=== PATIENT | female | born 1985 | race Hispanic/Latino ===

== ENCOUNTER 2019-09-12 17:16 | Emergency (ER) | payer SELFPAY ==
--- OUTSIDE RECORDS SUMMARY | 2019-09-12 17:19 | XMS REPORT | Continuity of Care Document ---
:1985 Author Organization [facility] t Address [address] [place] [address] [address]. Tena [address] [place] [address] Care Team Providers Name Role Phone Unavailable Unavailable Unavailable Payers Payer Name Policy Type Policy Number Effective Date Expiration Date S ource Problems This patient has no known problems. Allergies, Adverse Reactions, Alerts Allergy Allergy Status Severity Reaction(s) Onset Inactive Treating Comm ents Source Name Type Date Date Clinician No Known DA Active U 2017-04 [facility] No Known DA Active U [facility] 3-25 [facility] Medications This patient has no known medications. Procedures This patient has no known procedures. Results Test Description Test Time Test Comments Results Result [facility] e Comments [facility] 2018-02-08 TRIMESTER 19:20:00 --------RUN DATE: 02/09/18 [facility] PAGE 1 RUN TIME: 9313 Specimen Inquiry RUN USER: INTERFACE --------PATIENT: NIURKA CHA LOC: GUNNAR U #: [id number] AGE/SX: 32/F ROOM: [facility] RE02/04/18REG DR: Loulou Kurtz MD : 81 BED: A DIS: 02/07/18 STATUS: DIS IN TLOC: -------- SPEC #: [id number] RECD: 02/04/18 STATUS: GISELLE REQ #: [id number] SHO: 02/04/18- [facility] DR: Loulou Kurtz MD ENTERED: 02/07/18 SP TYPE: PLACIII OTHR DR: Kylah Holland MD ORDERED: LEVEL V SURGICA CODES: [id number] - PLACENTA, NOS COPIES TO: Loulou Kurtz MD [address] [place] [address] [email or web address] Kylah Holland MD [address] [place] [address] [email or web address] PROCEDURES: LEVEL V SURGICA (Incomplete) TISSUES: PLACENTA, NOS - PLACENTA CLINICAL HISTORY 32 year old, 37.2 weeks, , oligohydramnios (wpd) FINAL DIAGNOSIS Placenta, delivery: - small placenta for stated gestational age - true knot of umbilical cord - perivillous fibrin deposition - chorionic cyst, focal Tissue code 1 CPT code(s): 51208 bgw/wpd 02/08/18 @ 1917 CONTINUED ON NEXT PAGE --------RUN DATE: 02/09/18 [facility] PAGE 2 RUN TIME: 1243 Specimen Inquiry RUN USER: INTERFACE --------SPEC #: [id number] PATIENT: NIURKA CHA #[id number] (Continued) GROSS DESCRIPTION The specimen was received in a container, labeled with the patient's name, unit number and designated "placenta". The following attributes are observed: Cord insertion: 5 cm from margin Cord length: 54 cm Number of vessels: 3 Cord color: Blue-loya Other cord findings: The cord contains a true cord knot measuring 4 x 3 x 3 cm (in E) surface findings: Steel blue, wrinkled, glistening and contains a loya, firm lesion measuring 1.5 cm and located 0.6 cm from the cord insertion site with an overlying 2.5 cm semi-translucent cyst containing light yellow, thin fluid (in B) Vasculature: Displays unremarkable blood vasculature Membranes rupture site: 0.0 cm to margin Membrane color: Loya Other membrane findings: Thickened and opaque The trimmed placental weight: 341 gm Disk measurement: 18 x 15 x 2.8 cm in greatest dimension Accessory lobes: None Maternal surface: Lobulated and intact Parenchyma: Red, beefy, and spongy Parenchyma lesions: None Cassettes: A through D, E - true cord knot /wpd 02/07/18 @ 5425 MICROSCOPIC DESCRIPTION In the area of the cord knot, the vessels appear mildly dilated; however, no inflammation is present. No definite evidence of vascular compromise is identified. There is focal perivillous fibrin deposition. The placenta is small for stated gestational age at 341 gm, which is less than the 10th percentile expected weight of 391 gm. w/wpd 02/08/18 @ 1917 Signed Loco Saleh 02/08/181919 -------- END OF REPORT
[2019-09-12] MEDS ORDERED: HYDROCODONE/APAP 7.5/325 MG TAB ONE (18:56)
--- NOTE | 2019-09-12 19:22 | EDPHYS ---
Physician Documentation [facility] Name: Cecile Miranda Age: 33 yrs Sex: Female : 1985 Arrival Date: 09/12/2019 Time: 17:18 Bed 25 Private MD: ED Physician Thiago Linn HPI: 09/12 00:23 This 33 yrs old Female presents to ER via Ambulatory with complaints of Fever, snw Decreased Appetite, Dizziness. 00:23 The patient reports fever, that was measured at 103 degrees Fahrenheit. Onset: The snw symptoms/episode began/occurred 3 day(s) ago, and became persistent. Modifying factors: unable to control bodyaches and fever. Associated signs and symptoms: Pertinent positives: abdominal pain, chest pain, chills, cough, decreased appetite, headache, myalgias. Severity of symptoms: At their worst the symptoms were moderate severe in the emergency department the symptoms are unchanged. The patient has not experienced similar symptoms in the past. The patient has been recently seen by a physician: [facility] - flu negative, awaiting CoVid 19. Historical: - Allergies: 09/11 17:38 No Known Allergies; ph - Home Meds: 17:38 None [Active]; ph - PSHx: 17:38 ; ph - Immunization history:: Adult Immunizations unknown. - Social history:: Smoking status: Patient denies any tobacco usage or history of. ROS: 09/12 00:22 Eyes: Negative for injury, pain, redness, and discharge, ENT: Negative for injury, snw pain, and discharge, Neck: Negative for injury, pain, and swelling, Cardiovascular: Negative for chest pain, palpitations, and edema, Respiratory: Negative for shortness of breath, cough, wheezing, and pleuritic chest pain, Abdomen/GI: Negative for abdominal pain, nausea, vomiting, diarrhea, and constipation, Back: Negative for injury and pain, : Negative for injury, bleeding, discharge, and swelling, MS/Extremity: Negative for injury and deformity, Skin: Negative for injury, rash, and discoloration, Neuro: Negative for headache, weakness, numbness, tingling, and seizure, Psych: Negative for depression, anxiety, suicide ideation, homicidal ideation, and hallucinations. Constitutional: Positive for body aches, chills, fatigue, fever, malaise. Exam: 00:24 Head/Face: Normocephalic, atraumatic. Eyes: Pupils equal round and reactive to light, snw extra-ocular motions intact. Lids and lashes normal. Conjunctiva and sclera are non-icteric and not injected. Cornea within normal limits. Periorbital areas with no swelling, redness, or edema. ENT: Nares patent. No nasal discharge, no septal abnormalities noted. Tympanic membranes are normal and external auditory canals are clear. Oropharynx with no redness, swelling, or masses, exudates, or evidence of obstruction, uvula midline. Mucous membranes moist. Neck: Trachea midline, no thyromegaly or masses palpated, and no cervical lymphadenopathy. Supple, full range of motion without nuchal rigidity, or vertebral point tenderness. No Meningismus. Chest/axilla: Normal chest wall appearance and motion. Nontender with no deformity. No lesions are appreciated. Cardiovascular: Regular rate and rhythm with a normal S1 and S2. No gallops, murmurs, or rubs. Normal PMI, no JVD. No pulse deficits. Respiratory: Lungs have equal breath sounds bilaterally, clear to auscultation and percussion. No rales, rhonchi or wheezes noted. No increased work of breathing, no retractions or nasal flaring. Abdomen/GI: Soft, non-tender, with normal bowel sounds. No distension or tympany. No guarding or rebound. No evidence of tenderness throughout. Back: No spinal tenderness. No costovertebral tenderness. Full range of motion. Skin: Warm, dry with normal turgor. Normal color with no rashes, no lesions, and no evidence of cellulitis. MS/ Extremity: Pulses equal, no cyanosis. Neurovascular intact. Full, normal range of motion. Neuro: Awake and alert, GCS 15, oriented to person, place, time, and situation. Cranial nerves II-XII grossly intact. Motor strength 5/5 in all extremities. Sensory grossly intact. Cerebellar exam normal. Normal gait. Psych: Awake, alert, with orientation to person, place and time. Behavior, mood, and affect are within normal limits. 00:24 Constitutional: The patient appears alert, awake, anxious, uncomfortable. Vital Signs: 09/11 17:33 BP 100 / 63; Pulse 113; Resp 20; Temp 101.5(O); Pulse Ox 98% on R/A; Weight 63.5 kg; ph Height 5 ft. 3 in. (160.02 cm); 17:45 BP 101 / 60 RA (man/reg); Pulse 98; Temp 100.7(O); Pulse Ox 98% on R/A; jp3 19:12 BP 102 / 65; Pulse 84; Resp 18; Pulse Ox 97% ; ll1 19:18 BP 101 / 64; Pulse 90; Temp 99.1(O); Pulse Ox 95% ; jp3 17:33 Body Mass Index 24.80 (63.50 kg, 160.02 cm) ph MDM: 18:36 Patient medically screened. snw 09/12 00:21 Data reviewed: vital signs, nurses notes. Data interpreted: Pulse oximetry: on room air snw is 95 %. Interpretation: acceptable. Counseling: I had a detailed discussion with the patient and/or guardian regarding: the historical points, exam findings, and any diagnostic results supporting the discharge/admit diagnosis, lab results, the need for outpatient follow up, to return to the emergency department if symptoms worsen or persist or if there are any questions or concerns that arise at home. Response to treatment: the patient's symptoms have markedly improved after treatment. Special discussion: Based on the history and exam findings, there is no indication for further emergent testing or inpatient evaluation. I discussed with the patient/guardian the need to see the primary care provider for further evaluation of the symptoms. ED course: Pt was tested for flu and CoVid 19 yesterday at [facility], will potentially have CoVid results tomorrow.. 09/11 17:46 Order name: Strep; Complete Time: 19:16 snw 09/11 19:09 Order name: Throat Culture EDUT 09/11 17:46 Order name: Droplet/Contact Precautions; Complete Time: 19:11 snw 09/11 17:46 Order name: Labs collected and sent; Complete Time: 19:27 snw 09/11 17:46 Order name: O2 Per Protocol; Complete Time: 17:54 snw Administered Medications: 09/11 18:37 Drug: [place] (7.5 mg-325 mg) 1 tabs {Note: RASS 0.} Route: PO; ll1 19:26 Follow up: Response: No adverse reaction; Pain is decreased; RASS: Alert and Calm (0) ll1 Disposition: 09/12/19 19:22 Discharged to Home. Impression: Fever, unspecified. - Condition is Stable. - Discharge Instructions: Fever, Adult, Viral Respiratory Infection. - Medication Reconciliation Form, Thank You Letter, Antibiotic Education, Prescription Opioid Use form. - Follow up: Emergency Department; When: As needed; Reason: Trouble breathing, Worsening of condition. Follow up: Private Physician; When: 1 week; Reason: Recheck today's complaints, Continuance of care, Re-evaluation by your physician. - Notes: Please avoid motrin/ibuprofen/aleve. Quarantine x 2 weeks. Await CoVid 19 results. Addendum: 09/17/2019 07:09 Co-signature as Attending Physician, Thiago Linn MD. m Signatures: Dispatcher [employer] EDMS Ada Mckeon, SADIQ-C ACCOUNT MAINTENANCE REPRESENTATIVE-Csnw Lauren Aquino RN RN Negro Francisco RN RN jb4 Mitchell Abbott RN RN 1 Thiago Linn MD MD [email or web address] Corrections: (The following items were deleted from the chart) 09/11 19:27 17:46 Document PUI# [place]. [place] [id number] 19:27 17:46 Notify [facility] Dept [phone]/ ordered. [place] [id number] 19:41 19:22 09/12/2019 19:22 Discharged to Home. Impression: Fever, unspecified. Condition is jb4 Stable. Forms are Medication Reconciliation Form, Thank You Letter, Antibiotic Education, Prescription Opioid Use. Follow up: Emergency Department; When: As needed; Reason: Trouble breathing, Worsening of condition. Follow up: Private Physician; When: 1 week; Reason: Recheck today's complaints, Continuance of care, Re-evaluation by your physician. snw
--- NOTE | 2019-09-12 19:22 | ER ---
[facility] Name: Cecile Miranda Age: 33 yrs Sex: Female : 1985 Arrival Date: 09/12/2019 Time: 17:18 Bed 25 Private MD: Diagnosis: Fever, unspecified Presentation: 09/11 17:33 Chief complaint: Patient states: Chills, fever, body aches, cough, and abdominal pain ph since Wednesday, TMAX 103.4, seen at urgent care yesterday swabbed for flu (negative) and COVID (pending), states, " I just can't keep my fever down and now my chest is hurting" Denies N/V/D or SOB. Coronavirus screen: Patient reports a cough. Patient denies shortness of breath or difficulty breathing. Patient reports a measured and/or subjective temperature greater than 100.4F. Patient denies travel on a cruise ship or to a country the [facility] currently lists as an affected area. Patient denies contact with known and/or suspected case of COVID-19. Prior COVID test collected on: 09/10. Ebola Screen: No symptoms or risks identified at this time. Initial Sepsis Screen: Does the patient meet any 2 criteria? Temp <36.0*C (96.8*F)) or > 38.3*C (100.9*F). Risk Assessment: Do you want to hurt yourself or someone else? Patient reports no desire to harm self or others. 17:33 Method Of Arrival: Ambulatory ph 17:33 Acuity: ANISA 4 ph 19:03 Onset of symptoms was September 10, 2019. ll1 19:04 Initial Sepsis Screen: Does the patient have a suspected source of infection? Yes: ll1 Productive cough/pneumonia. Historical: - Allergies: 17:38 No Known Allergies; ph - Home Meds: 17:38 None [Active]; ph - PSHx: 17:38 ; ph - Immunization history:: Adult Immunizations unknown. - Social history:: Smoking status: Patient denies any tobacco usage or history of. Screenin:03 Abuse screen: Denies threats or abuse. Nutritional screening: No deficits noted. ll1 Tuberculosis screening: No symptoms or risk factors identified. Fall Risk None identified. Gait- Weak (10 pts.). Total King Fall Scale indicates No Risk (0-24 pts). Assessment: 18:30 General: Appears in no apparent distress. Behavior is calm, cooperative, appropriate ll1 for age. Pain: Complains of pain in body Quality of pain is described as aching, Pain began. Neuro: No deficits noted. Cardiovascular: No deficits noted. Respiratory: Reports cough that is dry, Airway is patent Trachea midline Respiratory effort is even, unlabored, Respiratory pattern is regular, symmetrical, Breath sounds are clear bilaterally. GI: Abdomen is flat, Bowel sounds present X 4 quads. Abd is soft and non tender X 4 quads. Reports lower abdominal pain, upper abdominal pain, nausea. Musculoskeletal: Circulation, motion, and sensation intact. Capillary refill < 3 seconds, Reports pain in body. 19:05 Reassessment: Patient appears in no apparent distress at this time. Patient and/or jb4 family updated on plan of care and expected duration. Pain level reassessed. Patient is alert, oriented x 3, equal unlabored respirations, skin warm/dry/pink. Patient states feeling better. Vital Signs: 17:33 BP 100 / 63; Pulse 113; Resp 20; Temp 101.5(O); Pulse Ox 98% on R/A; Weight 63.5 kg; ph Height 5 ft. 3 in. (160.02 cm); 17:45 BP 101 / 60 RA (man/reg); Pulse 98; Temp 100.7(O); Pulse Ox 98% on R/A; jp3 19:12 BP 102 / 65; Pulse 84; Resp 18; Pulse Ox 97% ; ll1 19:18 BP 101 / 64; Pulse 90; Temp 99.1(O); Pulse Ox 95% ; jp3 17:33 Body Mass Index 24.80 (63.50 kg, 160.02 cm) ph ED Course: 17:18 Patient arrived in ED. as 17:37 Triage completed. ph 17:38 Arm band placed on Patient placed in an exam room. ph 17:40 Mitchell Abbott, KG is Primary Nurse. ll1 17:45 Ada Mckeon FNP-C is PHCP. snw 17:45 Thiago Linn MD is Attending Physician. snw 17:47 Bed in low position. Call light in reach. Side rails up X 1. Side rails up X2. Verbal jp3 reassurance given. Pulse ox on. NIBP on. 17:47 Patient maintains SpO2 saturation greater than 95% on room air. jp3 19:40 No provider procedures requiring assistance completed. Patient did not have IV access jb4 during this emergency room visit. Administered Medications: 18:37 Drug: [place] (7.5 mg-325 mg) 1 tabs {Note: RASS 0.} Route: PO; ll1 19:26 Follow up: Response: No adverse reaction; Pain is decreased; RASS: Alert and Calm (0) ll1 Outcome: 19:22 Discharge ordered by . stas 19:40 Discharged to home ambulatory, with family. jb4 19:40 Condition: stable 19:40 Discharge instructions given to patient, Instructed on discharge instructions, follow up and referral plans. Demonstrated understanding of instructions, follow-up care. 19:41 Patient left the ED. jb4 Signatures: Ada Mckeon, DIRECTOR OF PERIOPERATIVE SERVICES-C DIRECTOR OF PERIOPERATIVE SERVICES-Csnw Loretta Garrett Patricia, RN RN Negro Francisco, KG RN jb4 Yomi Lambert jp3 Mitchell Abbott, KG RN ll1
[2019-09-12 19:52] VITALS: BP 101/64; TEMP 99.1; O2SAT 95
== END 2019-09-12 19:41 | disposition home or self-care (01) ==
LOC: ER 17:16
DX: R50.9 Fever, unspecified (principal); Z20.828 Contact with and (suspected) exposure to other viral communicable diseases
CPT/HCPCS: 87070; 87081; 99284

== ENCOUNTER 2019-09-13 18:01 | Inpatient (IN) | payer OTHER, SELFPAY ==
--- OUTSIDE RECORDS SUMMARY | 2019-09-13 18:03 | XMS REPORT | Continuity of Care Document ---
:1985 Author Organization [facility] t Address [address] [place] [address] [address]. [address] [place] [address] Care Team Providers Name Role Phone Unavailable [...] 0-26 [facility] No Known DA Active U [facility] 3-25 [facility] Medications This patient has no known medications. Procedures This patient has no known procedures. Results Test Description Test Time Test Comments Results Result [facility] e Comments [facility] 2018-02-08 TRIMESTER 19:20:00 --------RUN DATE: 02/09/18 [facility] PAGE 1 RUN TIME: 6573 Specimen Inquiry RUN USER: INTERFACE --------PATIENT: NIURKA CHA LOC: GUNNAR U #: [id number] AGE/SX: 32/F ROOM: [facility] RE02/04/18REG DR: Loulou Kurtz MD : 81 BED: A DIS: 02/07/18 STATUS: DIS IN TLOC: -------- SPEC #: [id number] RECD: 02/04/18 STATUS: GISELLE REQ #: [id number] SHO: 02/04/18- [facility] DR: Loulou Kurtz MD ENTERED: 02/07/18 SP TYPE: PLACIII OTHR DR: Kylah Holland MD ORDERED: LEVEL V SURGICA CODES: [id number] - PLACENTA, NOS COPIES TO: Loulou Kurtz MD [address] [place] [address] [email or web address] Kylah Holland MD [address] [place] [address] [email or web address] PROCEDURES: LEVEL V SURGICA (Incomplete) TISSUES: PLACENTA, NOS - PLACENTA CLINICAL HISTORY 32 year old, 37.2 weeks, , oligohydramnios (wpd) FINAL DIAGNOSIS Placenta, delivery: - small placenta for stated gestational age - true knot of umbilical cord - perivillous fibrin deposition - chorionic cyst, focal Tissue code 1 CPT code(s): 98532 bgw/wpd 02/08/18 @ 1917 CONTINUED ON NEXT PAGE --------RUN DATE: 02/09/18 [facility] PAGE 2 RUN TIME: 1243 Specimen Inquiry RUN USER: INTERFACE --------SPEC #: [id number] PATIENT: NIURKA CHA #[id number] (Continued) GROSS DESCRIPTION The specimen was received [...] - true cord knot /wpd 02/07/18 @ 5704 MICROSCOPIC DESCRIPTION In the area of the [...]
[2019-09-13 18:42] LABS: Absolute Lymphocytes (CBC) 0.6 K/uL (0.7-4.9); Basophils % 0.3 % (0-1.3); Hematocrit 40.9 % (36.0-45.0); MPV 8.7 fL (7.6-11.3); RBC Red Blood Cell Count 4.14 M/uL (3.86-4.86)
[2019-09-13 18:44] LABS: Protime INR 1.18
[2019-09-13] MEDS ORDERED: NA CHLORIDE 0.9% 2,000 ML ONE (18:52)
[2019-09-13] MEDS ORDERED: ACETAMINOPHEN 500 MG TAB ONE (18:52)
[2019-09-13] MEDS ORDERED: ONDANSETRON 4 MG/2 ML VIAL ONE (18:52)
[2019-09-13] MEDS ORDERED: FAMOTIDINE 20 MG/2 ML VIAL IV ONE (18:52)
[2019-09-13 19:02] LABS: ALT/SGPT 17 U/L (12-78); AST/SGOT 10 U/L (15-37); Albumin 3.6 g/dL (3.4-5.0); Alkaline Phosphatase 89 U/L (45-117); Amylase 61 U/L (25-115); BUN Blood Urea Nitrogen 9 mg/dL (7-18); Bicarbonate 25 mmol/L (21-32); Bilirubin Direct 0.1 mg/dL (0-0.2); Bilirubin Total 0.5 mg/dL (0.2-1.0); CKMB Creatine Kinase MB < 1.0 ng/mL (0.3-3.6); Creatine Phosphokinase 36 U/L (26-192); Glucose Level 119 mg/dL (74-106); Lipase 61 U/L (73-393); Potassium 3.8 mmol/L (3.5-5.1); Protein, Total 7.9 g/dL (6.4-8.2); Sodium Level 135 mmol/L (136-145); Troponin (Emerg Dept Use Only) < 0.02 ng/mL (0.0-0.045)
--- NOTE | 2019-09-13 19:08 | RAD REPORT ---
EXAM DESCRIPTION: RAD - Chest Single View - 09/13/2019 6:56 pm CLINICAL HISTORY: pneumonia COMPARISON: None TECHNIQUE: AP portable chest image was obtained 09/13/2019 6:56 pm . FINDINGS: Lungs are clear. Heart and vasculature are normal. No measurable pleural effusion and no p neumothorax. No acute bony abnormality seen. No acute aortic findings suspected. Bilateral breast imp lants increase overall density in the lower lung gipson. IMPRESSION: No acute cardiopulmonary process.
[2019-09-13 19:11] LABS: Blood Morphology Comment NOT SEEN (NOT SEEN); Platelet Estimate ADEQ; Urine White Blood Cell Casts OK
[2019-09-13 20:40] LABS: Urine Blood 2+ (NEG); Urine Glucose NEGATIVE (NEG); Urine Protein NEGATIVE (NEG); Urine Specific Gravity 1.015 (1.005-1.030); Urine pH 6.5 (5.0-7.0)
[2019-09-13 20:40] LABS: Urine Bacteria >50 /HPF (<20); Urine Culture Reflex Order REFLEXED
[2019-09-13] MEDS ORDERED: CEFTRIAXONE/SWI 1gm 1 GM/10 ML SYR ONE (21:06)
--- NOTE | 2019-09-13 21:39 | RAD REPORT ---
EXAM DESCRIPTION: CT - Stone Protocol - 09/13/2019 9:09 pm CLINICAL HISTORY: back pain COMPARISON: No comparisons TECHNIQUE: Axial 5 mm thick images were obtained without oral or IV contrast. The [id number] span s the entirety of the system including uppermost abdomen and lung bases. All CT scans are performed using dose optimization technique as appropriate and may include automated exposure control or mA/KV adjustment according to patient size. FINDINGS: No hydronephrosis is present and no obstructing ureteral calculi. No suspicious renal mass es. Left kidney appears mildly edematous when compared with the right. Isodense masses and pyelonephr itis are not excluded on a stone protocol CT scan. No significant adrenal finding. No urinary bladder suspicious finding. Uterus and ovaries show no suspicious findings. Phleboliths are present. Imaged portions of the liver, spleen and pancreas show no suspicious findings on non-contrast imaging . No gallbladder or biliary tree abnormality identified. No suspicious bowel findings. Normal right show cecal appendix is present abutting the inferior tip o f the liver. No hernia, mass or bulky lymphadenopathy noted. No free air, free fluid or inflammatory stranding. No significant bony abnormality. IMPRESSION: No hydronephrosis or obstructing calculus. Left kidney is questionably edematous when compared with the right. Isodense masses and pyelonephriti s are not excluded on stone protocol technique. No acute GI or MANGAN[employer] HE[employer] process.
--- NOTE | 2019-09-13 21:52 | EDPHYS ---
Physician Documentation [facility] Name: Cecile Miranda Age: 33 yrs Sex: Female : 1985 Arrival Date: 09/13/2019 Time: 18:03 Bed 19 Private MD: ED Physician Montez Loredo HPI: 09/12 18:20 This 33 yrs old Female presents to ER via Ambulatory with complaints of cp Nausea/Vomiting, Fever. 18:20 The patient presents to the emergency department with nausea, that is mild, vomiting, cp that is intermittent. 18:20 Onset: The symptoms/episode began/occurred yesterday. cp 18:20 Associated signs and symptoms: Pertinent positives: fever, cough. cp 18:20 Patient reports she was screened for COVID-19 2 days ago at urgent care. 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 - Social history:: Smoking status: Patient denies any tobacco usage or history of. ROS: 18:30 Eyes: Negative for injury, pain, redness, and discharge. cp 18:30 Constitutional: Positive for fever, poor PO intake, Negative for body aches. 18:30 ENT: Negative for ear pain, rhinorrhea, sore throat, difficulty swallowing, difficulty cp handling secretions. 18:30 Neck: Positive for tenderness, Negative for stiffness. 18:30 Cardiovascular: Negative for chest pain. 18:30 Respiratory: Positive for cough, Negative for shortness of breath, wheezing. 18:30 Abdomen/GI: Positive for nausea and vomiting, Negative for diarrhea, constipation. 18:30 Back: Positive for pain at rest, pain with movement, of the lumbar area. 18:30 : Negative for urinary symptoms, vaginal discharge. 18:30 Skin: Negative for rash. 18:30 Neuro: Negative for altered mental status, headache, weakness. 18:30 All other systems are negative. Exam: 18:35 Constitutional: The patient appears in no acute distress, alert, awake, non-toxic, well cp developed, well nourished. 18:35 Head/Face: Normocephalic, atraumatic. cp 18:35 Eyes: Periorbital structures: appear normal, Conjunctiva: normal, no exudate, no injection, Sclera: no appreciated abnormality, Lids and lashes: appear normal, bilaterally. 18:35 ENT: External ear(s): are unremarkable, Nose: is normal, Mouth: Lips: moist, Oral mucosa: moist, Posterior pharynx: is normal, airway is patent, no erythema, no exudate. 18:35 Neck: ROM/movement: limited range of motion, is not appreciated, Meningeal signs: are not present, nuchal rigidity, is not appreciated, Lymph nodes: no appreciated lymphadenopathy. 18:35 Chest/axilla: Inspection: normal, Palpation: is normal, no crepitus, no tenderness. 18:35 Cardiovascular: Rate: tachycardic, Rhythm: regular, Edema: is not appreciated, JVD: is not appreciated. 18:35 Respiratory: the patient does not display signs of respiratory distress, Respirations: normal, no use of accessory muscles, no retractions, labored breathing, is not present, Breath sounds: are clear throughout, no decreased breath sounds, no stridor, no wheezing. 18:35 Abdomen/GI: Inspection: abdomen appears normal, Bowel sounds: active, all quadrants, Palpation: soft, in all quadrants, mild abdominal tenderness, in all quadrants, rebound tenderness, is not appreciated, voluntary guarding, is not appreciated, involuntary guarding, is not appreciated. 18:35 Back: pain, that is mild, of the lumbar area, ROM is painful, with flexion. 18:35 Skin: cellulitis, is not appreciated, no rash present. 18:35 Neuro: Orientation: to person, place \T\ time. Mentation: is normal, Motor: moves all fours, strength is normal. 18:50 ECG was reviewed by the Attending Physician. cp Vital Signs: 18:08 BP 94 / 59; Pulse 115; Resp 16; Temp 103.2(O); Pulse Ox 95% ; Weight 63.96 kg; Height 5 sv ft. 3 in. (160.02 cm); 19:00 BP 100 / 60; Pulse 106; Resp 17 S; Pulse Ox 99% on R/A; ca1 20:00 BP 98 / 64; Pulse 96; Resp 18; Pulse Ox 95% on R/A; wh 21:00 BP 94 / 61; Pulse 84; Resp 18; Temp 98.6; Pulse Ox 96% on R/A; 22:30 BP 96 / 57; Pulse 71; Resp 18; Pulse Ox 100% on R/A; 06 00:00 BP 97 / 54; Pulse 70; Resp 18; Pulse Ox 100% on R/A; wh 01:00 BP 90 / 54; Pulse 68; Resp 18; Pulse Ox 99% on R/A; 09/12 18:08 Body Mass Index 24.98 (63.96 kg, 160.02 cm) sv MDM: 09/12 18:18 Patient medically screened. cp 18:40 Differential diagnosis: viral gastroenteritis, sepsis, COVID-19, pneumonia, UTI. cp 21:45 Data reviewed: vital signs, nurses notes, lab test result(s), EKG, radiologic studies, cp CT scan, and as a result, I will admit patient. 21:45 Test interpretation: by ED physician or midlevel provider: ECG. Response to treatment: the patient's symptoms have markedly improved after treatment. 09/12 18:17 Order name: Amylase, Serum; Complete Time: 19:07 [facility] 09/12 18:17 Order name: Basic Metabolic Panel; Complete Time: 19:07 [facility] 09/12 19:07 Interpretation: Normal except: NA 135; GLUC 119; GFR 83. 09/12 18:17 Order name: Blood Culture Adult (2) [facility] 09/12 18:17 Order name: CBC with Diff; Complete Time: 19:24 [facility] 06 19:08 Interpretation: Normal except: YASMIN% 86.8; LYM% 6.0; NEUT A 8.9; LYMA 0.6. 09/12 18:17 Order name: Ckmb; Complete Time: 19:07 [facility] 09/12 18:17 Order name: CPK; Complete Time: 19:07 [facility] 09/12 18:17 Order name: Lactate; Complete Time: 19:07 [facility] 09/12 19:08 Interpretation: LAC 0.9; Reviewed. 09/12 18:17 Order name: LFT's; Complete Time: 19:07 [facility] 06/ 19:08 Interpretation: Normal except: AST 10; GLOB 4.3; A/G 0.8. 09/12 18:17 Order name: Lipase; Complete Time: 19:07 kdr 06/03 19:24 Interpretation: Abnormal: LIP 61. cp 06/03 18:17 Order name: Procalcitonin; Complete Time: 20:18 kdr 06/ 20:18 Interpretation: Procalcitonin 2.55; Reviewed. cp / 18:17 Order name: Protime (+inr); Complete Time: 19:07 kdr 06/ 18:17 Order name: Ptt, Activated; Complete Time: 19:07 kdr 09/12 18:17 Order name: Troponin (emerg Dept Use Only); Complete Time: 19:07 kdr 06/ 19:09 Interpretation: Within normal limits: TROPED < 0.02. cp 06/ 18:17 Order name: Urine Microscopic Only; Complete Time: 20:47 kdr 06/ 18:17 Order name: Chest Single View XRAY; Complete Time: 19:24 kdr 06/03 19:24 Interpretation: Report review. / 18:48 Order name: Glucose, Ancillary Testing; Complete Time: 19:07 EDMS / 19:11 Order name: CBC Smear Scan; Complete Time: 19:24 EDMS /03 20:15 Order name: Urine Dipstick--Ancillary (enter results); Complete Time: 20:47 ar5 09/12 20:15 Order name: Urine --Ancillary (enter results); Complete Time: 20:47 ar5 /03 20:41 Order name: Urine Culture EDMS / 20:48 Order name: CT Stone Protocol; Complete Time: 21:42 06/03 22:03 Order name: COVID-19 sg 09/13 00:17 Order name: CBC with Automated Diff EDMS / 00:17 Order name: CBC with Automated Diff EDMS /04 00:17 Order name: Comprehensive Metabolic Panel EDMS / 00:17 Order name: Comprehensive Metabolic Panel EDMS 09/12 18:17 Order name: Accucheck; Complete Time: 18:50 kdr 09/12 18:17 Order name: Cardiac monitoring; Complete Time: 18:50 kdr 09/12 18:17 Order name: EKG - Nurse/Tech; Complete Time: 18:50 kdr 09/12 18:17 Order name: IV Saline Lock - Large Bore; Complete Time: 18:50 kdr 09/12 18:17 Order name: Labs collected and sent; Complete Time: 18:50 kdr 09/12 18:17 Order name: O2 Per Protocol; Complete Time: 18:50 kdr 09/12 18:17 Order name: O2 Sat Monitoring; Complete Time: 18:50 kdr 09/12 18:17 Order name: Urine Dipstick-Ancillary (obtain specimen); Complete Time: 20:22 kdr 09/12 18:18 Order name: Urine Test (obtain specimen); Complete Time: 20:22 cp 09/13 00:17 Order name: CONS Pharmacy Consult EDMS 09/13 00:17 Order name: NPO EDMS EC:50 Rate is 104 beats/min. Rhythm is regular. OK interval is normal. QRS interval is cp normal. QT interval is normal. T waves are Inverted in lead aVR. Interpreted by me. Reviewed by me. Administered Medications: 18:40 Drug: NS 0.9% (30 ml/kg) 30 ml/kg Route: IV; Rate: bolus; Site: right antecubital; ca1 09/13 02:09 Follow up: Response: No adverse reaction; IV Status: Completed infusion 09/12 18:45 Drug: Zofran (Ondansetron) 4 mg Route: IVP; Site: right antecubital; ca1 20:24 Follow up: Response: No adverse reaction; Nausea is decreased 18:48 Drug: Pepcid 20 mg Route: IVP; Site: right antecubital; ca1 20:23 Follow up: Response: No adverse reaction wh 18:50 Drug: Tylenol 1000 mg Route: PO; ca1 20:23 Follow up: Response: No adverse reaction; Temperature is decreased 21:07 Drug: Rocephin 1 grams Route: IV; Rate: calculated rate; Site: left antecubital; wh 21:11 Follow up: Response: No adverse reaction; IV Status: Completed infusion Disposition: 09/13 09:00 Co-signature as Attending Physician, Montez Loredo MD I agree with the assessment and chris plan of care. Disposition: 09/13/19 21:51 Hospitalization ordered by Broderick Selby for Inpatient Admission. Preliminary diagnosis are Urinary tract infection, site not specified, Other sepsis. - Bed requested for Telemetry/MedSurg (Inpatient). - Status is Inpatient Admission. aa5 - Condition is Fair. - Problem is new. - Symptoms have improved. Signatures: Dispatcher [employer] EDWA Mamta Gant, RN RN sv Montez Loredo MD MD cha Rittger, Kevin, MD MD kdr Calderon, Audri, RN RN aa5 Nikia Graham RN RN tl1 Montez Land, FADIA PA Luisa Hubbard Michelle Orona RN RN ca1 Corrections: (The following items were deleted from the chart) 09/12 19:08 19:07 Normal except: YASMIN% 86.8; LYM% 6.0; NEUT A 8.9. [facility] 09/13 00:22 09/12 21:51 Hospitalization Ordered by Broderick Selby MD for Inpatient Admission. tl1 Preliminary diagnosis is Urinary tract infection, site not specified; Other sepsis. Bed requested for Telemetry/MedSurg (Inpatient). Status is Inpatient Admission. Condition is Fair. Problem is new. Symptoms have improved. 09/13 05:58 00:22 09/13/2019 21:51 Hospitalization Ordered by Broderick Selby MD for Inpatient tl1 Admission. Preliminary diagnosis is Urinary tract infection, site not specified; Other sepsis. Bed requested for [facility]UST ER HOLD. Status is Inpatient Admission. Condition is Fair. Problem is new. Symptoms have improved. tl1 07:23 05:58 09/13/2019 21:51 Hospitalization Ordered by Broderick Selby MD for Inpatient aa5 Admission. Preliminary diagnosis is Urinary tract infection, site not specified; Other sepsis. Bed requested for Telemetry/MedSurg (Inpatient). Status is Inpatient Admission. Condition is Fair. Problem is new. Symptoms have improved. tl1
--- NOTE | 2019-09-13 21:52 | ER ---
Nurse's Notes [facility] Name: Cecile Miranda Age: 33 yrs Sex: Female : 1985 Arrival Date: 09/13/2019 Time: 18:03 Bed 19 Private MD: Diagnosis: Urinary tract infection, site not specified;Other sepsis Presentation: 09/12 18:05 Chief complaint: Patient states: fever Tmax 104.2, n/v since Wednesday. Was seen here sv yesterday for nausea. Reports small productive cough. Coronavirus screen: Surgical mask placed on patient. Patient moved to private room, placed in contact and droplet isolation with eye protection until further assessment. Patient reports a cough. Patient denies shortness of breath or difficulty breathing. Patient reports a measured and/or subjective temperature greater than 100.4F. Patient denies travel on a cruise ship or to a country the [facility] currently lists as an affected area. Patient denies contact with known and/or suspected case of COVID-19. Prior COVID test collected on: 09/11/19 results are pending. Ebola Screen: No symptoms or risks identified at this time. Risk Assessment: Do you want to hurt yourself or someone else? Patient reports no desire to harm self or others. Onset of symptoms was September 10, 2019. 18:05 Method Of Arrival: Ambulatory sv 18:05 Acuity: ANISA 2 sv 18:08 Initial Sepsis Screen: Does the patient meet any 2 criteria? Temp <36.0*C (96.8*F)) or sv > 38.3*C (100.9*F). HR > 90 bpm. Yes Does the patient have a suspected source of infection? Yes: Productive cough/pneumonia. 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 - Social history:: Smoking status: Patient denies any tobacco usage or history of. Screenin:20 Abuse screen: Denies threats or abuse. Denies injuries from another. Nutritional ca1 screening: No deficits noted. Tuberculosis screening: No symptoms or risk factors identified. Fall Risk IV access (20 points). Assessment: 18:20 General: Appears in no apparent distress. comfortable, ill, Behavior is calm, ca1 cooperative, appropriate for age. General: Reports fever for 1-2 days. Pain: Complains of pain in all over Pain currently is 6 out of 10 on a pain scale. Pain began 2-3 days ago. Neuro: Level of Consciousness is awake, alert, obeys commands, Oriented to person, place, time, situation, Appropriate for age. Cardiovascular: Heart tones S1 S2 present Capillary refill < 3 seconds Patient's skin is warm and dry. Rhythm is sinus tachycardia. Respiratory: Airway is patent Respiratory effort is even, unlabored, Respiratory pattern is regular, symmetrical, Breath sounds are clear bilaterally. GI: Abdomen is flat, non-distended, Bowel sounds present X 4 quads. Abd is soft and non tender X 4 quads. Reports nausea, vomiting. : No signs and/or symptoms were reported regarding the genitourinary system. EENT: No signs and/or symptoms were reported regarding the EENT system. Derm: Skin is intact, is healthy with good turgor, Skin is pink, warm \T\ dry. Musculoskeletal: Circulation, motion, and sensation intact. Capillary refill < 3 seconds. 19:20 Reassessment: Patient appears in no apparent distress at this time. Patient and/or family updated on plan of care and expected duration. Pain level reassessed. Patient is alert, oriented x 3, equal unlabored respirations, skin warm/dry/pink. 21:09 Reassessment: Patient appears in no apparent distress at this time. No changes from previously documented assessment. Patient and/or family updated on plan of care and expected duration. Pain level reassessed. Patient is alert, oriented x 3, equal unlabored respirations, skin warm/dry/pink. Patient states feeling better. 22:30 Reassessment: Patient appears in no apparent distress at this time. No changes from previously documented assessment. Patient and/or family updated on plan of care and expected duration. Pain level reassessed. Patient is alert, oriented x 3, equal unlabored respirations, skin warm/dry/pink. Explained POC need for admit Patient states feeling better. 09/13 00:00 Reassessment: Patient appears in no apparent distress at this time. No changes from previously documented assessment. Patient and/or family updated on plan of care and expected duration. Pain level reassessed. Patient is alert, oriented x 3, equal unlabored respirations, skin warm/dry/pink. Patient states feeling better. Vital Signs: 09/12 18:08 BP 94 / 59; Pulse 115; Resp 16; Temp 103.2(O); Pulse Ox 95% ; Weight 63.96 kg; Height 5 sv ft. 3 in. (160.02 cm); 19:00 BP 100 / 60; Pulse 106; Resp 17 S; Pulse Ox 99% on R/A; ca1 20:00 BP 98 / 64; Pulse 96; Resp 18; Pulse Ox 95% on R/A; wh 21:00 BP 94 / 61; Pulse 84; Resp 18; Temp 98.6; Pulse Ox 96% on R/A; wh 22:30 BP 96 / 57; Pulse 71; Resp 18; Pulse Ox 100% on R/A; wh 09/13 00:00 BP 97 / 54; Pulse 70; Resp 18; Pulse Ox 100% on R/A; wh 01:00 BP 90 / 54; Pulse 68; Resp 18; Pulse Ox 99% on R/A; wh 09/12 18:08 Body Mass Index 24.98 (63.96 kg, 160.02 cm) sv ED Course: 09/12 18:03 Patient arrived in ED. ag5 18:06 Triage completed. sv 18:07 Arm band placed on. sv 18:13 Michelle Orona, KG is Primary Nurse. ca1 18:15 Jose Antonio Saunders MD is Attending Physician. kdr 18:18 Montez Land PA is PHCP. cp 18:20 Patient has correct armband on for positive identification. Placed in gown. Bed in low ca1 position. Call light in reach. Side rails up X 1. audio visual secretary on. Pulse ox on. NIBP on. 18:26 Initial lab(s) drawn, by me, sent to lab. First set of blood cultures drawn by me. ca1 Inserted saline lock: 22 gauge in left antecubital area, using aseptic technique. Blood collected. 18:40 Inserted saline lock: 20 gauge in right antecubital area, using aseptic technique. ca1 Blood collected. 18:40 Second set of blood cultures drawn by me. ca1 18:56 Chest Single View XRAY In Process Unspecified. EDMS 19:08 Report given to KG Kingsley. ca1 19:25 Montez Loredo MD is Attending Physician. 21:12 CT Stone Protocol In Process Unspecified. EDMO 21:50 Broderick Selby MD is Hospitalizing Provider. 09/13 01:00 No provider procedures requiring assistance completed. Patient admitted, IV remains in place. 06:30 Report received from KG Kingsley. 07:01 Report given to Maia SAUL. sg Administered Medications: 09/12 18:40 Drug: NS 0.9% (30 ml/kg) 30 ml/kg Route: IV; Rate: bolus; Site: right antecubital; ca1 09/13 02:09 Follow up: Response: No adverse reaction; IV Status: Completed infusion 09/12 18:45 Drug: Zofran (Ondansetron) 4 mg Route: IVP; Site: right antecubital; ca1 20:24 Follow up: Response: No adverse reaction; Nausea is decreased 18:48 Drug: Pepcid 20 mg Route: IVP; Site: right antecubital; ca1 20:23 Follow up: Response: No adverse reaction 18:50 Drug: Tylenol 1000 mg Route: PO; ca1 20:23 Follow up: Response: No adverse reaction; Temperature is decreased 21:07 Drug: Rocephin 1 grams Route: IV; Rate: calculated rate; Site: left antecubital; 21:11 Follow up: Response: No adverse reaction; IV Status: Completed infusion Outcome: 21:51 Decision to Hospitalize by Provider. 09/13 01:00 Admitted to ER Hold. Please see [facility] for further documentation. Condition: stable Instructed on the need for admit. 07:21 Admitted to Tele accompanied by tech, via wheelchair, with chart, Report called to panda Dumont RN 07:21 Condition: stable 07:23 Patient left the ED. aa5 Signatures: Dispatcher [employer] Mamta Guevara RN RN sv Gay, Steven, RN RN sg Rittger, Kevin, MD MD kdr Calderon, Audri, RN RN aa5 Page, Corey, PA PA Luisa Hubbard Michelle Orona RN RN ca1 Stepan Dey ag5 Corrections: (The following items were deleted from the chart) 06/03 18:08 18:05 Coronavirus screen: Proceed with normal triage. Patient denies a cough. Patient sv denies shortness of breath or difficulty breathing. Patient reports a measured and/or subjective temperature greater than 100.4F. Patient denies travel on a cruise ship or to a country the [facility] currently lists as an affected area. Patient denies contact with known and/or suspected case of COVID-19. sv 18:11 18:05 Chief complaint: Patient states: fever Tmax 104.2, n/v since Wednesday. Was seen sv here yesterday for nausea. sv 18:12 18:05 Acuity: ANISA 3 [facility]
[2019-09-14] MEDS ORDERED: ONDANSETRON 4 MG/2 ML VIAL IV PRN (00:10)
[2019-09-14] MEDS ORDERED: MORPHINE 2 MG/ML SYR IV PRN (00:10)
[2019-09-14] MEDS ORDERED: ACETAMINOPHEN 500 MG TAB PO PRN (00:10)
[2019-09-14 00:50] VITALS: BMI 24.7
[2019-09-14] MEDS: NA CHLORIDE 0.9% 1,000 ML IV SCH ×3 (01:00→18:47)
[2019-09-14] MEDS ORDERED: Levofloxacin500mg IV 500 MG/100 ML BAG IV ONE (07:30)
[2019-09-14] MEDS: CEFTRIAXONE/SWI 1gm 1 GM/10 ML SYR IV SCH ×2 (07:58→21:28)
--- NOTE | 2019-09-14 08:10 | P.HP ---
Certification for Inpatient Patient admitted to: Observation With expected LOS: <2 Midnights Patient will require the following post-hospital care: None Practitioner: I am a practitioner with admitting privileges, knowledge of patient current condition, hospital course, and medical plan of care. Services: Services provided to patient in accordance with Admission requirements found in Title 42 Section 412.3 of the Code of Federal Regulations Patient History Date of Service: 09/14/19 Reason for admission: Pyelonephritis History of Present Illness: Patient is a 33-year-old female came to the hospital with abdominal pain. She has had some flank tenderness and fevers of 104. When she got into the emergency room her temp was a 103. She came to the ER for further evaluation. She had gone to urgent care the day before and they thought she may have pharyngitis for strep screen was negative. She was having some flank tenderness. She came to the hospital and was found to have pyelonephritis. Patient was admitted to the hospital for IV antibiotic treatment. Allergies No Known Allergies Allergy (Verified 09/14/19 00:50) Home Medications: NK [No Home Meds] 09/14/19 - Past Medical/Surgical History Has patient received pneumonia vaccine in the past: No Diabetic: No Past Medical History: Patient denies medical history -: Csection -: Breast Implants - Social History Smoking Status: Never smoker Place of Residence: Home Review of Systems 10-point ROS is otherwise unremarkable Physical Examination - Vital Signs Temperature: 98.5 F Blood Pressure: 98/58 Pulse: 87 Respirations: 16 Pulse Ox (%): 98 - Physical Exam General: Alert, In no apparent distress, Oriented x3 HEENT: Atraumatic, PERRLA, Mucous membr. moist/pink, EOMI, Sclerae nonicteric Neck: Supple, 2+ carotid pulse no bruit, No LAD, Without JVD or thyroid abnormality Respiratory: Clear to auscultation bilaterally, Normal air movement Cardiovascular: Regular rate/rhythm, Normal S1 S2, No murmurs Gastrointestinal: Normal bowel sounds, Soft and benign, Non-distended, No rebound, No guarding, Tenderness Musculoskeletal: No clubbing, No swelling, No tenderness Integumentary: No rashes Neurological: Normal gait, Normal speech, Normal strength at 5/5 x4 extr, Normal tone, Sensation intact, Cranial nerves 3-12 intact Lymphatics: No axilla or inguinal lymphadenopathy - Studies Laboratory Data (last 24 hrs) 09/13/19 18:27: PT 13.9 H, INR 1.18, APTT 30.6 09/13/19 18:27: WBC 10.2, Hgb 13.5, Hct 40.9, Plt Count 163 09/13/19 18:27: Sodium 135 L, Potassium 3.8, BUN 9, Creatinine 0.79, Glucose 119 H, Total Bilirubin 0.5, AST 10 L, ALT 17, Alkaline Phosphatase 89, Amylase 61, Lipase 61 L Microbiology Data (last 24 hrs): 09/13/19 22:36 Nasopharnyx Coronavirus COVID-19 PCR - Final Assessment & Plan - Problems (Diagnosis) (1) Pyelonephritis Current Visit: Yes Status: Acute - Plan Plan: 1. IV hydration 2. IV antibiotics 3. Monitor labs 4. Repeat procalcitonin level 5. awaiting urine culture results and blood culture results 6. GI and DVT prophylaxis Discharge Plan: Home Plan to discharge in: 24 Hours - Advance Directives Does patient have a Living Will: No Does patient have a Durable POA for Healthcare: No - Code Status/Comfort Care Code Status Assessed: Yes Code Status: Full Code Critical Care: No Time Spent Managing PTS Care (In Minutes): 45
--- NOTE | 2019-09-14 09:55 | EKG ---
Test Date: 2019-09-13 Test Time: 18:43:07 Environmental Studies Professor: ROMERO MEASUREMENT RESULTS: Intervals: Rate: 104 SC: 116 QRSD: 80 QT: 316 QTc: 415 [place]: P: 59 SC: 116 QRS: 86 T: 37 INTERPRETIVE STATEMENTS: Sinus tachycardia Otherwise normal ECG No previous ECG available for comparison Electronically Signed On 09-14-19 09:53:56 CDT by Dominic Arteaga
[2019-09-15] MEDS: NA CHLORIDE 0.9% 1,000 ML IV SCH ×3 (01:00→08:53)
[2019-09-15 05:02] VITALS: TEMP 98.4
[2019-09-15 05:22] LABS: Absolute Lymphocytes (CBC) 1.6 K/uL (0.7-4.9); Basophils % 0.5 % (0-1.3); Hematocrit 34.2 % (36.0-45.0); Lymphocytes % 28.9 % (15.3-44.8); MPV 8.7 fL (7.6-11.3); RBC Red Blood Cell Count 3.54 M/uL (3.86-4.86)
[2019-09-15 05:38] LABS: ALT/SGPT 14 U/L (12-78); AST/SGOT 10 U/L (15-37); Albumin 2.7 g/dL (3.4-5.0); Alkaline Phosphatase 71 U/L (45-117); BUN Blood Urea Nitrogen 8 mg/dL (7-18); Bicarbonate 27 mmol/L (21-32); Bilirubin Total 0.2 mg/dL (0.2-1.0); Glucose Level 93 mg/dL (74-106); Magnesium 2.1 mg/dL (1.8-2.4); Phosphorus 3.2 mg/dL (2.5-4.9); Potassium 3.6 mmol/L (3.5-5.1); Protein, Total 6.4 g/dL (6.4-8.2); Sodium Level 140 mmol/L (136-145)
[2019-09-15] MEDS: CEFTRIAXONE/SWI 1gm 1 GM/10 ML SYR IV SCH (07:19)
[2019-09-15 07:24] VITALS: BP 93/62; O2SAT 100
--- NOTE | 2019-09-19 11:42 | P.DS ---
Discharge Date: 09/15/19 Disposition: ROUTINE DISCHARGE Discharge Condition: GOOD Reason for Admission: Pyelonephritis - Problems (1) Pyelonephritis Status: Acute Brief History of Present Illness: Patient is a 33-year-old female came to the hospital with abdominal pain. She has had some flank tenderness and fevers of 104. When she got into the emergency room her temp was a 103. She came to the ER for further evaluation. She had gone to urgent care the day before and they thought she may have pharyngitis for strep screen was negative. She was having some flank tenderness. She came to the hospital and was found to have pyelonephritis. Patient was admitted to the hospital for IV antibiotic treatment. Hospital Course: Patient has done well during hospital stay. Patient's urine culture revealed E. coli. Patient will be discharged on Augmentin. Patient will follow-up with her PCP in 1-2 weeks. Return to the Emergency room if her symptoms worsen. She was worried about fungal infection from the antibiotics so I prescribed her Diflucan for 3 days. Vital Signs/Physical Exam: Temp Pulse Resp BP Pulse Ox 98.4 F 76 18 93/62 100 09/15/19 07:22 09/15/19 07:22 09/15/19 07:22 09/15/19 07:22 09/15/19 07:22 General: Alert, In no apparent distress, Oriented x3 Laboratory Data at Discharge: WBC Cancelled 09/15/19 05:00 Hgb Cancelled 09/15/19 05:00 Hct Cancelled 09/15/19 05:00 Plt Count Cancelled 09/15/19 05:00 PT 13.9 SECONDS (9.5-12.5) H 09/13/19 18:27 INR 1.18 09/13/19 18:27 APTT 30.6 SECONDS (24.3-36.9) 09/13/19 18:27 Sodium Cancelled 09/15/19 05:00 Potassium Cancelled 09/15/19 05:00 BUN Cancelled 09/15/19 05:00 Creatinine Cancelled 09/15/19 05:00 Glucose Cancelled 09/15/19 05:00 Phosphorus 3.2 mg/dL (2.5-4.9) 09/15/19 04:53 Magnesium 2.1 mg/dL (1.8-2.4) 09/15/19 04:53 Total Bilirubin Cancelled 09/15/19 05:00 AST Cancelled 09/15/19 05:00 ALT Cancelled 09/15/19 05:00 Alkaline Phosphatase Cancelled 09/15/19 05:00 Amylase 61 U/L (25-115) 09/13/19 18:27 Lipase 61 U/L (73-393) L 09/13/19 18:27 Home Medications: Amox/Clavulanate [Augmentin 875-125 Tab] 1 each PO BID #14 tab 09/15/19 Codeine/APAP [Tylenol W/Codeine #3 tab] 1 tab PO Q6HP PRN #30 tab 09/15/19 Fluconazole [Diflucan] 150 mg PO DAILY #3 tablet 09/15/19 New Medications: Amox/Clavulanate [Augmentin 875-125 Tab] 1 each PO BID #14 tab Fluconazole [Diflucan] 150 mg PO DAILY #3 tablet Codeine/APAP [Tylenol W/Codeine #3 tab] 1 tab PO Q6HP PRN #30 tab PRN Reason: Pain Patient Discharge Instructions: OK TO DC IV AND DC HOME. FOLLOW-UP WITH PRIMARY CARE PROVIDER IN 1-2 WEEKS. RETURN TO THE ER IF symptoms worsen. CALL or TEXT DR. DELGADO AT [phone] IF ANY QUESTIONS REGARDING HOSPITAL STAY. PLEASE CALL THE FLOOR AT [phone] IF ANY MEDICATION OR NURSING QUESTIONS. Diet: Regular Activity: Fall precautions Time spent managing pt's care (in minutes): 15
== END 2019-09-15 10:04 | disposition home or self-care (01) | DRG 690 ==
LOC: ER 18:01 → ERHOLD 09-14 00:17 → 4TH 09-14 07:17 → OBSVTOIN 09-14 08:22 → 4TH 09-14 19:42
PROVIDERS: ADMIT Hospitalist; ATTEND Hospitalist
DX: N10 Acute pyelonephritis (principal); B96.20 Unspecified Escherichia coli [E. coli] as the cause of diseases classified elsewhere; Z79.891 Long term (current) use of opiate analgesic; R50.9 Fever, unspecified; Z20.828 Contact with and (suspected) exposure to other viral communicable diseases; Z98.82 Breast implant status
CPT/HCPCS: 36415; 71045; 74176; 76377; 80048; 80053; 80076; 81003; 81015; 81025; 82150; 82550; 82553; 82947; 83605; 83690; 83735; 84100; 84145; 84484; 85025; 85610; 85730; 87040; 87077; 87086; 87088; 87186; 93005; 99285; G0378; J0696; J2405; J7030; U0002

== ENCOUNTER → 2023-06-16 | Emergency (ER) | payer BC ==
[~2023-06-16] MED LIST: HYDROCODONE/APAP 7.5/325 MG TAB ONE
--- NOTE | 2023-06-16 15:40 | RAD REPORT ---
EXAM DESCRIPTION: Tracy Single View06/16/2023 2:53 pm CLINICAL HISTORY: Chest pain COMPARISON: 2019 FINDINGS: The lungs appear clear of acute infiltrate. The heart is normal size IMPRESSION: No acute abnormalities displayed
[2023-06-16 17:17] LABS: Absolute Eosinophils 0.4 K/uL (0-0.5); Absolute Lymphocytes (CBC) 2.2 K/uL (0.7-4.9); Basophils % 0.9 % (0-1.3); Eosinophils % 7.5 % (0-4.4); Hematocrit 37.6 % (36.0-45.0); Lymphocytes % 43.8 % (15.3-44.8); MCV 97.2 fL (80-100); MPV 7.9 fL (7.6-11.3); Platelets 191 thou/uL (152-406); RBC Red Blood Cell Count 3.87 M/uL (3.86-4.86)
[2023-06-16 17:45] LABS: Anion Gap 7.7 mEq/L (5.0-15.0); BUN Blood Urea Nitrogen 11 mg/dL (7-18); Bicarbonate 27 mEq/L (21-32); Glomerular Filtration Rate 99 ml/min (=/>90); Glucose Level 93 mg/dL (74-106); Magnesium 2.1 mg/dL (1.6-2.4); Potassium 3.7 mEq/L (3.5-5.1); Sodium Level 137 mEq/L (136-145)
[2023-06-16 17:48] LABS: Troponin High Sensitivity < 3.0 pg/mL (<58.9)
--- NOTE | 2023-06-16 17:54 | ER ---
Nurse's Notes [facility] Name: Cecile Miranda Age: 37 yrs Sex: Female : 1985 Arrival Date: 06/16/2023 Time: 14:00 Bed IW6 Private MD: Diagnosis: Chest pain on breathing Presentation: 06/15 14:17 Chief complaint: Patient states: Pt c/o sharp chest pain that radiates into back and tl4 left arm. Pain gets worse with deep inspiration and movement. Pt denies diaphoresis, nausea. Coronavirus screen: At this time, the client does not indicate any symptoms associated with coronavirus-19. Ebola Screen: No symptoms or risks identified at this time. Initial Sepsis Screen: Does the patient meet any 2 criteria? No. Patient's initial sepsis screen is negative. Does the patient have a suspected source of infection? No. Patient's initial sepsis screen is negative. Risk Assessment: Do you want to hurt yourself or someone else? Patient reports no desire to harm self or others. Onset of symptoms was June 16, 2023 at 12:14. 14:17 Method Of Arrival: Ambulatory tl4 14:17 Acuity: ANISA 3 tl4 Triage Assessment: 14:19 General: Appears uncomfortable, Behavior is calm, cooperative. Pain: Complains of pain tl4 in chest. EENT: No deficits noted. No signs and/or symptoms were reported regarding the EENT system. Neuro: No deficits noted. Cardiovascular: Reports chest pain, Denies diaphoresis, fatigue, lightheadedness, nausea, palpitations, shortness of breath, syncope. Respiratory: No deficits noted. Denies cough, shortness of breath. GI: No deficits noted. No signs and/or symptoms were reported involving the gastrointestinal system. : No deficits noted. No signs and/or symptoms were reported regarding the genitourinary system. Derm: No deficits noted. No signs and/or symptoms reported regarding the dermatologic system. Musculoskeletal: No deficits noted. No signs and/or symptoms reported regarding the musculoskeletal system. Historical: - Allergies: 14:20 No Known Allergies; tl4 - PMHx: 14:20 Anemia; tl4 - Immunization history:: Adult Immunizations unknown. - Social history:: Smoking status: Patient denies any tobacco usage or history of. Screenin:59 [facility] ED Fall Risk Assessment (Adult) History of falling in the last 3 months, bp including since admission No falls in past 3 months (0 pts). Abuse screen: Denies threats or abuse. Denies injuries from another. Nutritional screening: No deficits noted. Tuberculosis screening: No symptoms or risk factors identified. Assessment: 17:59 Reassessment: [facility]. bp Vital Signs: 14:17 BP 105 / 67; Pulse 77; Resp 16; Temp 98.3; Pulse Ox 100% on R/A; Weight 68.49 kg; tl4 Height 5 ft. 3 in. ; Pain 10/10; 14:17 Body Mass Index 26.75 (68.49 kg, 160.02 cm) tl4 14:17 Pain Scale: Adult tl4 ED Course: 14:04 Patient arrived in ED. im 14:12 Evelyn Leiva FNP-C is PHCP. kb 14:12 Jonas Gates MD is Attending Physician. kb 14:19 Triage completed. tl4 14:19 Arm band placed on right wrist. tl4 14:55 XRAY Chest (1 view) In Process Unspecified. EDMS 16:16 Initial lab(s) drawn, by ED staff, sent to lab. Accessed. db 17:58 Sigifredo Omalley, RN is Primary Nurse. bp 17:59 Patient has correct armband on for positive identification. Provided Education on: N/A. bp Cardiac monitoring not applicable on this patient. 17:59 No provider procedures requiring assistance completed. Patient did not have IV access bp during this emergency room visit. Patient maintains SpO2 saturation greater than 95% on room air. Administered Medications: 18:00 Drug: Hydrocodone-Acetaminophen PO (7.5 mg-325 mg) 1 tabs PO once Route: PO; bp 18:00 Follow up: Response: No adverse reaction bp Medication: 17:59 VIS not applicable for this client. bp Outcome: 17:53 Discharge ordered by . kb 17:59 Discharged to home ambulatory, bp 17:59 Condition: stable 17:59 Discharge instructions given to patient, Instructed on discharge instructions, follow up and referral plans. Demonstrated understanding of instructions, follow-up care, 18:00 Patient left the ED. bp Signatures: Dispatcher [employer] EDMS Evelyn Leiva FNP-C CREATIVE RESOURCE MANAGER-Sigifredo Jonas, RN RN bp Margie Heath, RN RN db Roseanna Deluna, Charlie, RN RN tl4
--- NOTE | 2023-06-16 17:54 | EDPHYS ---
Physician Documentation [facility] Name: Cecile Miranda Age: 37 yrs Sex: Female : 1985 Arrival Date: 06/16/2023 Time: 14:00 Bed IW6 Private MD: ED Physician Jonas Gates HPI: 06/15 14:54 This 37 yrs old Female presents to ER via Ambulatory with complaints of Chest kb Pain, Shoulder Pain, Arm Pain - Left. 14:54 Patient is a 37-year-old female who presents for sharp left upper chest pain that kb started 2 hours prior to arrival while sitting and watching TV. Reports pain is increased with movement, deep breath. Denies injury or trauma. Denies shortness of breath. Denies recent illness including cough, congestion, fever.. Historical: - Allergies: 14:20 No Known Allergies; tl4 - PMHx: 14:20 Anemia; tl4 - Immunization history:: Adult Immunizations unknown. - Social history:: Smoking status: Patient denies any tobacco usage or history of. ROS: 14:53 Constitutional: As per HPI kb 14:53 Cardiovascular: Positive for chest pain, with movement, of the anterior aspect of left upper chest, 14:53 All other systems are negative, Exam: 14:53 Constitutional: This is a well developed, well nourished patient who is awake, alert, kb and in no acute distress. Head/Face: Normocephalic, atraumatic. ENT: Moist Mucous membranes Cardiovascular: Regular rate Respiratory: Respirations even and unlabored. No increased work of breathing. Talking in full sentences Abdomen/GI: Soft, non-tender. No distention Skin: Warm, dry with normal turgor. Normal color. MS/ Extremity: Pulses equal, no cyanosis. Neurovascular intact. Full, normal range of motion. Neuro: Awake and alert, GCS 15, oriented to person, place, time, and situation. Moves all extremities. Normal gait. Vital Signs: 14:17 BP 105 / 67; Pulse 77; Resp 16; Temp 98.3; Pulse Ox 100% on R/A; Weight 68.49 kg; tl4 Height 5 ft. 3 in. ; Pain 10/10; 14:17 Body Mass Index 26.75 (68.49 kg, 160.02 cm) tl4 14:17 Pain Scale: Adult tl4 MDM: 14:13 Patient medically screened. kb 14:54 Data reviewed: vital signs, nurses notes. kb 17:52 Differential diagnosis: abnormal EKG, acute myocardial infarction, coronary artery kb disease chest wall pain. Counseling: I had a detailed discussion with the patient and/or guardian regarding the historical points, exam findings, and any diagnostic results supporting the discharge/admit diagnosis, lab results, radiology results, the need for outpatient follow up, a family practitioner, to return to the emergency department if symptoms worsen or persist or if there are any questions or concerns that arise at home. ED course: HEART score 0. 06/15 14:17 Order name: Basic Metabolic Panel; Complete Time: 17:48 kb 06/15 14:17 Order name: CBC with Diff; Complete Time: 17:33 kb 06/15 14:17 Order name: D-Dimer; Complete Time: 17:33 kb 06/15 14:17 Order name: Magnesium; Complete Time: 17:48 kb 06/15 14:17 Order name: Troponin HS; Complete Time: 17:48 kb 06/15 14:17 Order name: XRAY Chest (1 view); Complete Time: 15:41 kb 06/15 14:17 Order name: EKG; Complete Time: 14:17 kb 06/15 14:17 Order name: Cardiac monitoring; Complete Time: 18:00 kb 06/15 14:17 Order name: EKG - Nurse/Tech; Complete Time: 14:31 kb 06/15 14:17 Order name: IV Saline Lock; Complete Time: 18:00 kb 06/15 14:17 Order name: Labs collected and sent; Complete Time: 18:00 kb 06/15 14:17 Order name: O2 Per Protocol; Complete Time: 16:28 kb 06/15 14:17 Order name: O2 Sat Monitoring; Complete Time: 16:28 kb 06/15 16:32 Order name: Labs - recollect needed: recollect green, lavender and blue top; Complete bd Time: 18:00 Administered Medications: 18:00 Drug: Hydrocodone-Acetaminophen PO (7.5 mg-325 mg) 1 tabs PO once Route: PO; bp 18:00 Follow up: Response: No adverse reaction bp Disposition Summary: 06/16/23 17:53 Discharge Ordered Notes: Location: Home kb Condition: Stable kb Diagnosis - Chest pain on breathing kb Followup: kb - With: Emergency Department - When: As needed - Reason: Worsening of condition Followup: kb - With: Private Physician - When: 2 - 3 days - Reason: Recheck today's complaints, Continuance of care, Re-evaluation by your physician Discharge Instructions: - Discharge Summary Sheet kb - Costochondritis, [id number] kb - Chest Wall Pain, [id number] kb Forms: - Medication Reconciliation Form kb - Thank You Letter kb - Antibiotic Education kb - Prescription Opioid Use kb - Patient Portal Instructions kb - Leadership Thank You Letter kb Addendum: 06/21/2023 06:58 Co-signature as Attending Physician, Jonas Gates MD I reviewed the patient's care r n provided by the Advanced Practice Provider and agree with the diagnosis and treatment plan. Signatures: Dispatcher [employer] Evelyn Limon, BARREL WATERER-C BARREL WATERER-Ckb Ely Madrigal Roman, MD MD rn Peltier, Brian, RN RN Charlie Og RN RN tl4
[2023-06-16 18:56] VITALS: BP 105/67; TEMP 98.3; O2SAT 100
--- NOTE | 2023-06-17 14:16 | EKG ---
Test Date: 2023-06-16 Test Time: 14:16:45 Emt P: TL MEASUREMENT RESULTS: Intervals: Rate: 81 [place]: 124 QRSD: 78 QT: 372 QTc: 432 [place]: P: 67 [place]: 124 QRS: 77 T: 45 INTERPRETIVE STATEMENTS: Normal sinus rhythm Normal ECG Compared to ECG 09/13/2019 18:43:07 Sinus tachycardia no longer present Electronically Signed On 06-17-23 14:13:04 DIRECTOR OF CATEGORY MANAGEMENT by Hill Estrada
== END ==
LOC: ER 14:00
DX: R07.1 Chest pain on breathing (principal)
CPT/HCPCS: 36415; 71045; 80048; 83735; 84484; 85025; 85379; 93005; 99284